=== PATIENT | male | born 1985 | race Caucasian/White ===

== ENCOUNTER → 2021-09-14 | Outpatient (CLI) | payer BC, OTHER ==
[~2021-09-14] MED LIST: ATOR1TAB19 PO; BUPR1FIL PO; BUPR300T92 PO; D 101000 PO
== END ==
LOC: M LABSMTC 10:03
PROVIDERS: ATTEND Anesthesiology
DX: Z01.812 Encounter for preprocedural laboratory examination (principal); Z20.822 Contact with and (suspected) exposure to COVID-19

== ENCOUNTER 2021-09-17 07:56 | Day surgery (SDC) | payer BC ==
[~2021-09-17] VITALS: Ht 172.7 cm; Wt 58.1 kg
[~2021-09-17 07:56] MED LIST changes: +NS 1,000 ML IV ONE
[2021-09-17] MEDS ORDERED: LIDOCAINE 2% 100MG/5ML SDV (FOR ANES.) As Ordered ONE (09:43)
[2021-09-17] MEDS ORDERED: propofoL 200 MG/20 ML VIAL As Ordered ONE (09:43)
[2021-09-17 10:10] VITALS: BP 137/77
== END 2021-09-17 10:20 | disposition home or self-care (01) ==
LOC: M OPP 07:56
PROVIDERS: ATTEND Surgery
DX: K92.1 Melena (principal); K64.1 Second degree hemorrhoids; E78.5 Hyperlipidemia, unspecified; K21.9 Gastro-esophageal reflux disease without esophagitis; F41.9 Anxiety disorder, unspecified; F32.A Depression, unspecified; F17.290 Nicotine dependence, other tobacco product, uncomplicated; Z79.899 Other long term (current) drug therapy